=== PATIENT | male | born 1980 | race African-American/Black ===

== ENCOUNTER 2017-06-23 11:32 | Emergency (ER) | payer SELFPAY ==
[2017-06-23 11:46] VITALS: BP 130/72; PULSE 67; RESP 16; TEMP 98; O2SAT 99
[2017-06-23] MEDS ORDERED: CEPH-460 PO (12:38)
[2017-06-23] MEDS ORDERED: DOXY100C PO (12:38)
--- NOTE | 2017-06-23 12:41 | PD ---
HPI Chief Complaint: Skin Problem Time Seen by Provider: 12:32 Travel History International Travel<30 days: No Contact w/Intl Traveler<30days: No Traveled to known affect area: No History of Present Illness HPI 36-year-old male presents to the emergency room for evaluation of left third middle finger pain and swelling for the past 6 days. Patient states he was [place] a [place] when he maximally stabbed himself in the finger with the hook. States it was superficial and there is no foreign body retained in his finger. Since then he has noticed worsening swelling, redness, and minimal pain to the left third finger of the middle phalanx. He denies any paresthesias. He has not taken anything for symptoms. Denies any drainage. Unknown last tetanus. No chronic medical conditions or daily medications. PFSH Past Medical History Medical History: Denies Significant Hx Tetanus Vaccination: > 5 Years Past Surgical History Surgical History: No Previous Surgery Social History Alcohol Use: No Tobacco Use: Yes Substance Use: No Allergies-Medications (Allergen,Severity, Reaction): Coded Allergies: No Known Allergies (Unverified , 06/23/17) Reported Meds & Prescriptions Reported Meds & Active Scripts Active Keflex (Cephalexin) 500 Mg Capsule 500 Mg PO Q6H 10 Days Doxycycline Hyclate 100 Mg Cap 100 Mg PO BID Review of Systems Except as stated in HPI: all other systems reviewed are Neg Physical Exam Narrative GENERAL: Well-nourished, well-developed male in no acute distress. Afebrile. Ambulatory. SKIN: Focused skin assessment warm/dry. Minimal redness to the left third middle phalanx. HEAD: Normocephalic. EYES: No scleral icterus. No injection or drainage. NECK: Supple, trachea midline. No JVD or lymphadenopathy. CARDIOVASCULAR: Regular rate and rhythm without murmurs, gallops, or rubs. RESPIRATORY: Breath sounds equal bilaterally. No accessory muscle use. MUSCULOSKELETAL: No cyanosis. Significant edema localized to the left third middle phalanx. There is no edema on the distal or proximal phalanx. Less than 2 second capillary refill distally. Patient has full range of motion of left hand without pain. Very mild tenderness to palpation of the middle phalanx. No tenderness along the tendon sheath. No drainage. Data Data Last Documented VS Vital Signs Date Time Temp Pulse Resp B/P (MAP) Pulse Ox O2 Delivery O2 Flow Rate FiO2 06/23/17 11:46 98.0 67 16 130/72 (91) 99 Orders Orders Tetanus/Diphtheria Tox Adult (Tetanus/Di (06/23/17 12:45) Ed Discharge Order (06/23/17 12:42) [facility] Medical Decision Making Medical Screen Exam Complete: Yes Emergency Medical Condition: Yes Medical Record Reviewed: Yes Differential Diagnosis Abscess, paronychia, cellulitis, foreign body, deep tissue infection, flexor tenosynovitis Narrative Course 36-year-old male presents to the emergency room for evaluation of left finger pain and swelling that started about 6 days ago. Patient stabbed himself in the finger with a fishhook after fishing and [place]. It has increasingly been worsening. Patient denies any significant pain. Physical exam reveals significant edema localized to the left third middle phalanx. There is no edema on the distal or proximal phalanx. Less than 2 second capillary refill distally. Patient has full range of motion of left hand without pain. Very mild tenderness to palpation of the middle phalanx. No tenderness along the tendon sheath. No drainage. I do not suspect any flexor tenosynovitis as patient has 0/4 [place] signs. He has a deep soft tissue infection but there is no drainable abscess at this time. Patient will be placed on antibiotics including doxycycline to cover for vibrio. Told to follow -up with a primary care physician or return for worsening symptoms including if the abscess develops a had and can be drained. He understands and agrees to plan. Diagnosis Primary Impression: Abscess of finger Qualified Codes: L02.512 - Cutaneous abscess of left hand Referrals: Primary Care Physician Additional Instructions: Rest and drink plenty of fluids. Take doxycycline as directed, until gone. Take Keflex as directed, until gone. Warm compresses to the affected area 20 minutes at a time, 5 times daily. Follow up with a primary care physician. Return to emergency room for worsening symptoms, as discussed. Med/Other Pt SpecificInfo: Prescription(s) given Scripts Cephalexin (Keflex) 500 Mg Capsule 500 MG PO Q6H for Infection for 10 Days, #40 CAP 0 Refills Prov: Nicole Lagos DO 06/23/17 Doxycycline Hyclate (Doxycycline Hyclate) 100 Mg Cap 100 MG PO BID for Infection, #20 CAP 0 Refills Prov: Nicole Lagos DO 06/23/17 Disposition: 01 DISCHARGE HOME Condition: Stable Loreto Gutierrez Jun 23, 2017 12:41
[2017-06-23] MEDS ORDERED: TETANUS/DIPHTHERIA TOXOID ADULT 0.5 ML VIAL IM ONE (12:45)
== END 2017-06-23 12:56 | disposition home or self-care (01) ==
LOC: NEPK 11:32
DX: L02.512 Cutaneous abscess of left hand (principal); Z23 Encounter for immunization; Z72.0 Tobacco use; W26.8XXA Contact with other sharp object(s), not elsewhere classified, initial encounter
CPT/HCPCS: 90471; 90714